=== PATIENT | female | born 1935 | race Caucasian/White ===

== ENCOUNTER 2020-02-07 14:28 | Emergency (ER) | payer OTHER ==
[~2020-02-07] VITALS: Ht 165.1 cm; Wt 55.3 kg
--- NOTE | ~2020-02-07 | EMS ---
[address] [address] EMS Patient Care Report Name: SHAHRZAD COYLE Room #: PRE M.R.#: [id number] Admission: Attend Phys: Discharge: Date of : 35 Report #: [id number] THIS REPORT FOR: //name// Report Transmitted: 02/07/2020 15:04 EMS Care Summary [facility] Incident [id number] @ 02/07/2020 13:59 Incident Location [address] [place] [address] Patient SHAHRZAD COYLE Female, 84 Years 1935 Patient Address [address] [place] [address] Patient History Alzheimer's,Depression,Hypothyroidism, Patient Allergies No known allergies, Patient Medications Aspirin, Loperamide, Levothyroxine, Acetaminophen, Alprazolam, Melatonin, Chief Complaint Na+ is 152 Disposition Transported No Lights/Imogene Dispatch Reason Sick Person Transported To [facility] Narrative Pt is found sitting in a wheel chair in the living room in no distress. Nursing staff states pt has a sodium level of 152 and needs to be evaluated in the ER. On EMS arrival, pt has no complaints/discomfort. Nursing staff states pt has a hx of Alzheimer's and is normally confused - nursing staff states pts mentation [address] [address] EMS Patient Care Report Name: SHAHRZAD COYLE Room #: PRE Jamar.#: [id number] Admission: Attend Phys: Discharge: Date of : 35 Report #: [id number] is normal on EMS arrival. Pt has no further complaints/discomfort. Tx= VS, pt lifted from wheel chair to cot by EMS without incident and secured. En route= VS, hospital contact with info only, pt has no changes en route. Initial Vitals @14:08P: 75,R: 16,BP: 106/64,Pain: 0/10,GCS: 14,SpO2: 100,Revised Trauma: 12, @14:14P: 80,R: 16,BP: 124/72,GCS: 14,SpO2: 100,Revised Trauma: 12, Assessments @14:06MENTAL:Confused,SKIN:HEENT:Head/Face: No Abnormalities,LUNG SOUNDS:General: No Abnormalities,ABDOMEN:General: No Abnormalities,PELVIS//GI:EXTREMITIES:Left Arm: No Abnormalities,Right Arm: No Abnormalities,Left Leg: No Abnormalities,Right Leg: No Abnormalities,PULSE:Radial: 2+ Normal,NEURO:No Abnormalities, Impression Need for continuous medical supervision Procedures @14:10Surgical Mask on PatientResponse: Unchanged Timeline 13:57,Call Received 13:57,Psap Call 13:59,Dispatched 13:59,En Route 14:03,On Scene 14:04,At Patient 14:08,BP: 106/64 M,PULSE: 75,RR: 16 R,SPO2: 100 Ox,ETCO2: ,BG: ,PAIN: 0,GCS: 14, 14:10,Surgical Mask on Patient,Response: Unchanged 14:13,Depart Scene 14:14,BP: 124/72 M,PULSE: 80,RR: 16 R,SPO2: 100 Ox,ETCO2: ,BG: ,PAIN: ,GCS: 14, 14:26,At Destination 14:41,Call Closed Disclaimer [email or web address] Copyright 2020 Definition 6 This EMS Care Summary contains data elements from the applicable legal record (which may be displayed differently). It is designed to provide pertinent information for the following purposes: continuity of care, clinical quality, and state data reporting. The complete legal record is available to ED staff and administrators of the receiving hospital in [employer] Patient Tracker. All data is provided "as is."
[~2020-02-07 14:28] MED LIST: APAP500 PO; ARICEPT 5 MG TAB5 MG PO; ASPIR 8181 M1 PO; CIPRO500 MG PO; FLAGYL500 MG PO; LEVOTHYROXINE0.05 MG PO; MELATONIN3 MG PO
[2020-02-07 15:09] LABS: HEMATOCRIT 40.5 % (37.0-47.0); HEMOGLOBIN 13.1 gm/dL (12.0-15.0); MCH 30.5 pg (26.0-34.0); MCHC 32.4 g/dL (28.0-37.0); MCV 93.9 fL (80.0-100.0); RBC 4.31 mil/uL (4.20-5.00); RDW 13.7 % (10.5-14.5); WBC 7.9 thou/uL (4.0-11.0)
[2020-02-07 15:17] LABS: CALCIUM 6.5 mg/dL (8.5-10.1); CREATININE 0.6 mg/dL (0.6-1.0); MAGNESIUM 1.5 mg/dL (1.8-2.4); PHOSPHORUS 2.6 mg/dL (2.5-4.9)
[2020-02-07] MEDS ORDERED: CELEXA 10 MG TA10 M1 PO (15:20)
[2020-02-07 15:28] LABS: POTASSIUM 2.9 mmol/L (3.5-5.1)
[2020-02-07 19:27] VITALS: BP 158/86
== END 2020-02-07 19:27 ==
LOC: ER 14:28
PROVIDERS: Emergency Medicine
DX: E87.0 Hyperosmolality and hypernatremia (principal); G30.9 Alzheimer's disease, unspecified; F02.80 Dementia in other diseases classified elsewhere, unspecified severity, without behavioral disturbance, psychotic disturbance, mood disturbance, and anxiety; K21.9 Gastro-esophageal reflux disease without esophagitis; E03.9 Hypothyroidism, unspecified; F32.9 Major depressive disorder, single episode, unspecified; Z79.2 Long term (current) use of antibiotics; Z79.899 Other long term (current) drug therapy; Z79.82 Long term (current) use of aspirin